=== PATIENT | male | born 1950 | race Caucasian/White ===

== ENCOUNTER 2020-07-15 10:05 | Inpatient (IN) ==
[2020-07-15] MEDS ORDERED: CeFAZolin Syr 2,000MG/20 ML 2,000 MG/20 ML SYRINGE IVPB ONE (10:23)
[2020-07-15] MEDS ORDERED: Ringers Solution, Lactated 1,000 ML IVC SCH ×2 (10:30→14:40)
[2020-07-15] MEDS ORDERED: *HR* Succinylcholine 200 MG/10 ML VIAL IVP ONE (11:12)
[2020-07-15] MEDS ORDERED: Dexamethasone 4 MG/ML VIAL ONE (11:12)
[2020-07-15] MEDS ORDERED: Ondansetron 4 MG/2 ML VIAL ONE (11:12)
[2020-07-15] MEDS ORDERED: Lidocaine HCL 4 ML Topical Solution (Laryng-O-Jet Kit Sterile Pak) TP ONE (11:12)
[2020-07-15] MEDS ORDERED: Lidocaine -MPF 2% 2 ML VIAL ONE (11:12)
[2020-07-15] MEDS ORDERED: *HR* Propofol 200 MG/20 ML VIAL IVP ONE (11:12)
[2020-07-15] MEDS ORDERED: Famotidine 20 MG/2 ML VIAL IVP ONE (11:24)
[2020-07-15] MEDS ORDERED: Acetaminophen IV 1,000 MG/100 ML INFUS..BTL IVPB ONE (11:24)
[2020-07-15] MEDS ORDERED: Ropivacaine/PF 0.5% 30 ML VIAL ONE (11:25)
[2020-07-15] MEDS ORDERED: ROPIVACAINE/PF/NS 0.25% 1 EACH SYRINGE INTRAART ONE (11:25)
[2020-07-15] MEDS ORDERED: *HR* OxyCODONE Immed Rel 5 MG TABLET PO PRN ×2 (11:29→14:40)
[2020-07-15] MEDS ORDERED: Ondansetron 4 MG/2 ML VIAL IVP PRN ×2 (11:29→14:40)
[2020-07-15] MEDS ORDERED: Vancomycin 1,000 MG VIAL ONE (11:46)
[2020-07-15] MEDS ORDERED: Ethanol\\Acetic Acid\\Na Ace\\Ben 1,000 ML IRRIG.SOLN IR ONE (11:46)
[2020-07-15] MEDS ORDERED: *HR* Midazolam HCl 2 MG/2 ML VIAL ONE (11:52)
[2020-07-15] MEDS ORDERED: *HR* FentaNYL (PF) 100 MCG/2 ML VIAL ONE (11:52)
[2020-07-15] MEDS ORDERED: Povidone-Iodine 45 ML, Sodium Chloride IRRigation 1,000 ML IR ONE (12:30)
[2020-07-15 13:51] LABS: Hematocrit 38.9 % (37.5-50.1); Hemoglobin 13.2 g/dL (12.9-16.9)
[2020-07-15] MEDS ORDERED: *HR* Dextrose 50 % in Water (Vial) 50 ML VIAL IVP PRN (14:40)
[2020-07-15] MEDS ORDERED: Sennosides 8.6 MG TABLET PO PRN (14:40)
[2020-07-15] MEDS ORDERED: MOM Conc 10 ML UD.LIQ PO PRN (14:40)
[2020-07-15] MEDS ORDERED: Dextrose Gel 15 GM/37.5 ML TUBE PO PRN ×2 (14:40)
[2020-07-15] MEDS ORDERED: D5% in Water 1,000 ML IVC PRN (14:40)
[2020-07-15] MEDS ORDERED: *HR* OxyCODONE/APAP 5/325 TABLET PO PRN (14:40)
[2020-07-15] MEDS: Insulin LISPRO 300 UNITS/3 ML VIAL SQ SCH ×2 (15:47→17:14)
[2020-07-15] MEDS: *HR* Metformin 850 MG TABLET PO SCH (17:36)
[2020-07-15] MEDS: *HR* Enoxaparin 30 MG/0.3 ML SYRINGE SQ SCH (17:36)
[2020-07-15] MEDS: CeFAZolin 2 GM/120 ML BAG IVPB SCH ×2 (17:37→23:15)
[2020-07-15] MEDS ORDERED: *HR* Enoxaparin 30 MG/0.3 ML SYRINGE SQ SCH (18:00)
[2020-07-15] MEDS ORDERED: Insulin LISPRO 300 UNITS/3 ML VIAL SQ SCH (21:00)
[2020-07-16 02:22] LABS: Hematocrit 39.4 % (37.5-50.1)
[2020-07-16] MEDS: *HR* Enoxaparin 30 MG/0.3 ML SYRINGE SQ SCH (05:41)
[2020-07-16 05:56] LABS: BUN/Creatinine Ratio 15 (6-26); Blood Urea Nitrogen 15 mg/dL (8-23); Calcium 9.3 mg/dL (8.6-10.3); Carbon Dioxide 26 mEq/L (23-29); Chloride 102 mEq/L (98-107); Glucose 146 mg/dL (70-105); Osmolality,Calculated 285 (280-300); Potassium 4.3 mEq/L (3.5-5.1); Sodium 136 mEq/L (136-145); eGFR For African Americans > 60 (> 60); eGFR For Non-African Americans > 60 (> 60)
[2020-07-16] MEDS ORDERED: lisinopriL 5 MG TABLET PO SCH (09:00)
[2020-07-16] MEDS ORDERED: Aspirin Enteric Coated 81 MG Tablet PO SCH (09:00)
[2020-07-16] MEDS ORDERED: Metoprolol XL (24 HR) Succ 25 MG TAB.ER.24H PO SCH (09:00)
[2020-07-16] MEDS ORDERED: hydroCHLOROthiazide 25 MG TABLET PO SCH (09:00)
[2020-07-16] MEDS ORDERED: Cholecalciferol (D-3) 1,000 UNIT (25MCG) TABLET PO SCH (09:00)
[2020-07-16] MEDS: Insulin LISPRO 300 UNITS/3 ML VIAL SQ SCH (09:21)
[2020-07-16] MEDS: *HR* Metformin 850 MG TABLET PO SCH (10:16)
[2020-07-16 10:43] VITALS: BP 109/67
== END 2020-07-16 11:50 | disposition home or self-care (01) | DRG 483 ==
LOC: SAMDAY 10:05 → 3NENU 13:57
PROVIDERS: ADMIT Orthopaedic Surgery; ATTEND Orthopaedic Surgery